=== PATIENT | female | born 1965 | race Caucasian/White ===

== ENCOUNTER 2022-11-24 21:04 | Observation (INO) | payer OTHER ==
[2022-11-24] MEDS ORDERED: ANTIVERT 25 MG PO ONE (22:33)
[2022-11-24] MEDS ORDERED: Zofran 4 MG/2 ML VIAL IV ONE (22:33)
[2022-11-24 22:42] LABS: Absolute Neutrophil Ct (ANC) 6.42 x10^3/uL (1.4-6.9); BASOPHIL % 0.3 % (0.0-0.4); Basophil (Absolute #) 0.03 x10^3/uL (0-0.4); Eosinophil % 1.3 % (0.00-5.0); Eosinophil (Absolute #) 0.11 x10^3/uL (0-0.5); Hemoglobin 15.9 g/dL (12.0-16.0); IMMATURE GRAN # 0.03 x10^3u/L (0.00-0.03); IMMATURE GRAN % 0.3 % (0.00-0.4); Lymphocytes % 17.4 % (24.0-44.0); Mean Cell Volume 91.1 fL (78-100); Mean Corpuscular Hemoglobin 30.2 pg (26-32); Mean Corpuscular Hgb Concent. 33.1 g/dL (32-36); Mean Platelet Volume 12.5 fL (7.5-11.0); Monocyte (Absolute #) 0.54 x10^3/uL (0.0-1.3); Monocytes % 6.3 % (0.0-12.0); Neutrophil % 74.4 % (36.0-66.0); Platelet Count 220 x10^3/uL (150-450); Red Blood Count 5.27 x10^6/uL (4.1-5.4); Red Cell Distribution Width 12.4 % (11.5-14.0); White Blood Count 8.6 x10^3/uL (4.0-10.5)
[2022-11-24] MEDS ORDERED: Zofran 4 MG/2 ML VIAL ONE (22:43)
[2022-11-24] MEDS ORDERED: ANTIVERT 25 MG ONE (22:43)
--- NOTE | 2022-11-24 22:44 | ERPHSYRPT ---
- History of Present Illness Time Seen by Provider: 11/24/22 22:39 Source: patient Exam Limitations: no limitations Patient Subjective Stated Complaint: dizziness, vomiting x2 Triage Nursing Assessment: pt ambulatory to bed by self, alert and oriented x3, pt resting in bed with eyes closed, pt c/o dizziness, pt states she has vomited x2 d/t the dizziness with the first time being forced, pt afebrile, pt states the dizziness is worse when she is ambulating, pt hypertensive, pt states no pmhx Physician History: Patient is a 57-year-old female presents to our ED with complaint of dizziness that started this morning. Patient went to work this morning. Dizziness progressed. Dizziness associated with nausea and vomiting. Patient states dizziness is constant however worse when she moves her head. No trauma. No f ever. No headache. No neck pain. No photophobia. Patient voices no other complaints at this time. Patient denies a history of the same. Patient has no significant cardiovascular risk factors other than age. Significant other at bedside. They voiced no other complaints or concerns at this time. \ Patient disclaimer Timing/Duration: today Severity: moderate Modifying Factors: Improves With: nothing Associated Symptoms: nausea, vomiting Allergies/Adverse Reactions: No Known Drug Allergies Allergy (Verified 11/25/22 01:10) Home Medications: No Reportable Medications [No Reported Medications] 11/24/22 [History] Hx Tetanus, Diphtheria Vaccination/Date Given: No Hx Influenza Vaccination/Date Given: No Hx Pneumococcal Vaccination/Date Given: No Immunizations Up to Date: Yes Travel Risk - International Travel Have you traveled outside of the country in past 3 weeks: No - Coronavirus Screening Are you exhibiting any of the following symptoms?: No Close contact with a COVID-19 positive Pt in past 14-21 Days: No - Vaccine Status Have you recieved a Covid-19 vaccination: 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: [employer] - Review of Systems Constitutional: No Symptoms, No Fever, No Chills Eyes: No Symptoms Ears, Nose, & Throat: No Symptoms Respiratory: No Symptoms, No Cough, No Dyspnea Cardiac: No Symptoms, No Chest Pain, No Edema, No Syncope Abdominal/Gastrointestinal: No Symptoms, No Abdominal Pain, No Nausea, No Vomiting, No Diarrhea Genitourinary Symptoms: No Symptoms, No Dysuria Musculoskeletal: No Symptoms, No Back Pain, No Neck Pain Skin: No Symptoms, No Rash Neurological: No Symptoms, No Dizziness, No Focal Weakness, No Sensory Changes Psychological: No Symptoms Endocrine: No Symptoms Hematologic/Lymphatic: No Symptoms Immunological/Allergic: No Symptoms All Other Systems: Reviewed and Negative - Past Medical History Pertinent Past Medical History: No Neurological History: No Pertinent History ENT History: No Pertinent History Cardiac History: No Pertinent History Respiratory History: No Pertinent History Endocrine Medical History: No Pertinent History Musculoskeletal History: No Pertinent History GI Medical History: No Pertinent History History: No Pertinent History Psycho-Social History: No Pertinent History Female Reproductive Disorders: No Pertinent History - Past Surgical History Past Surgical History: Yes Neuro Surgical History: No Pertinent History Cardiac: No Pertinent History Respiratory: No Pertinent History Gastrointestinal: No Pertinent History Genitourinary: No Pertinent History Musculoskeletal: No Pertinent History Female Surgical History: Section - Social History Smoking Status: Never smoker Exposure to second hand smoke: No Drug Use: none Patient Lives Alone: No - Nursing Vital Signs Nursing Vital Signs: Initial Vital Signs Temperature 97.4 F 11/24/22 21:15 Pulse Rate 86 11/24/22 21:15 Respiratory Rate 18 11/24/22 21:15 Blood Pressure 168/111 11/24/22 21:15 O2 Sat by Pulse Oximetry 99 11/24/22 21:15 Pain Scale Pain Intensity 0 - Physical Exam General Appearance: no apparent distress, alert Eye Exam: PERRL/EOMI, eyes nml inspection Ears, Nose, Throat Exam: normal ENT inspection, TMs normal, pharynx normal, moist mucous membranes Neck Exam: normal inspection, non-tender, supple, full range of motion Respiratory Exam: normal breath sounds, lungs clear, airway intact, No respiratory distress Cardiovascular Exam: regular rate/rhythm, normal heart sounds, normal peripheral pulses Gastrointestinal/Abdomen Exam: soft, normal bowel sounds, No tenderness, No mass Back Exam: normal inspection, normal range of motion, No CVA tenderness, No vertebral tenderness Extremity Exam: normal inspection, normal range of motion, pelvis stable Neurologic Exam: alert, oriented x 3, cooperative, normal mood/affect, sensation nml, other (We were able to reproduce dizziness with head motion. Neuro gynecologic exam otherwise negative), No motor deficits Skin Exam: normal color, warm, dry, No rash Lymphatic Exam: No adenopathy SpO2 Interpretation: normal SpO2: 98 O2 Delivery: Room Air - Course Nursing assessment & vital signs reviewed: Yes EKG Interpreted by Me: RATE (73), Sinus Rhythm, NORMAL AXIS, NORMAL INTERVALS - CT Exams Head CT Interpretation: Tele-radiologist Report (CT head negative for acute intracranial pathology.) Ordered Tests: Active Orders 24 hr Category Date Time Status Internet Technology Manager STAT Care 11/24/22 22:30 Active EKG-ER Only STAT Care 11/24/22 22:29 Active IV Insertion STAT Care 11/24/22 22:29 Active Pulse Oximetry (ED) STAT Care 11/24/22 22:29 Active HEAD WITHOUT CONTRAST [CT] Stat Exams 11/24/22 22:34 Taken CBC W DIFF Stat Lab 11/24/22 22:30 Completed CMP Stat Lab 11/24/22 22:30 Completed TROPONIN Q4H Lab 11/24/22 22:30 Completed TROPONIN Q4H Lab 11/25/22 02:30 Ordered TROPONIN Q4H Lab 11/25/22 06:30 Ordered UA W/RFX UR CULTURE Stat Lab 11/24/22 22:35 Completed Transfer Order Routine Transfer 11/25/22 Ordered Medication Summary Generic Name Dose Route Start Last Admin Trade Name Freq PRN Reason Stop Dose Admin Sodium Chloride 1,000 mls @ 100 mls/hr 11/24/22 22:30 11/24/22 22:52 Sodium Chloride 0.9% 1000 Ml IV 12/24/22 22:29 100 mls/hr .Q10H EDILIA Administration Discontinued Medications Generic Name Dose Route Start Last Admin Trade Name Freq PRN Reason Stop Dose Admin Meclizine HCl 25 mg 11/24/22 22:33 11/24/22 22:51 Meclizine Hcl 25 Mg Tablet PO 11/24/22 22:34 25 mg STAT ONE Administration Meclizine HCl Confirm 11/24/22 22:43 Meclizine Hcl 25 Mg Tablet Administered 11/24/22 22:44 Dose 25 mg .ROUTE .STK-MED ONE Ondansetron HCl 4 mg 11/24/22 22:33 11/24/22 22:51 Ondansetron Hcl 4 Mg/2 Ml Vial IV 11/24/22 22:34 4 mg STAT ONE Administration Ondansetron HCl Confirm 11/24/22 22:43 Ondansetron Hcl 4 Mg/2 Ml Vial Administered 11/24/22 22:44 Dose 4 mg .ROUTE .STK-MED ONE Lab/Rad Data: Laboratory Result Diagrams 11/24/22 22:30 11/24/22 22:30 Laboratory Results 11/24/22 11/24/22 11/24/22 Range/Units 23:50 22:35 22:30 WBC (4.0-10.5) x10^3/uL RBC (4.1-5.4) x10^6/uL Hgb (12.0-16.0) g/dL Hct (35-47) % MCV (78-100) fL MCH (26-32) pg MCHC (32-36) g/dL RDW (11.5-14.0) % Plt Count (150-450) x10^3/uL MPV (7.5-11.0) fL Gran % (36.0-66.0) % Immature Gran % (Auto) (0.00-0.4) % Nucleat RBC Rel Count (0.00-0.1) % Eos # (Auto) (0-0.5) x10^3/uL Immature Gran # (Auto) (0.00-0.03) x10^3u/L Absolute Lymphs (auto) (1.0-4.6) x10^3/uL Absolute Monos (auto) (0.0-1.3) x10^3/uL Absolute Nucleated RBC (0.00-0.01) x10^3u/L Lymphocytes % (24.0-44.0) % Monocytes % (0.0-12.0) % Eosinophils % (0.00-5.0) % Basophils % (0.0-0.4) % Absolute Granulocytes (1.4-6.9) x10^3/uL Basophils # (0-0.4) x10^3/uL Sodium (137-145) mmol/L Potassium (3.5-5.1) mmol/L Chloride (98-107) mmol/L Carbon Dioxide (22-30) mmol/L Anion Gap (5-15) MEQ/L BUN (7-17) mg/dL Creatinine (0.52-1.04) mg/dL Estimated GFR ML/MIN Glucose (74-106) mg/dL Calcium (8.4-10.2) mg/dL Total Bilirubin (0.2-1.3) mg/dL AST (14-36) U/L ALT (0-35) U/L Alkaline Phosphatase (38-126) U/L Troponin I < 0.012 (0.000-0.034) ng/mL Serum Total Protein (6.3-8.2) g/dL Albumin (3.5-5.0) g/dL Urine Color Yellow (Yellow) Urine Appearance Turbid A (Clear) Urine pH >=9.0 A (4.6-8.0) Ur Specific [place] 1.020 (1.005-1.030) Urine Protein Trace A (Negative) Urine Glucose (UA) Negative (Negative) mg/dL Urine Ketones Negative (Negative) Urine Blood Negative (Negative) Urine Nitrite Negative (Negative) Urine Bilirubin Negative (Negative) Urine Urobilinogen 0.2 (0.2) mg/dL Ur Leukocyte Esterase Trace A (Negative) U Hyaline Cast (Auto) NONE SEEN (0-2) /LPF Urine Microscopic RBC 0-2 (0-5) /HPF Urine Microscopic WBC 0-2 (0-5) /HPF Ur Epithelial Cells Rare (None Seen) /HPF Urine Bacteria None Seen (None Seen) /HPF Urine Culture Reflexed NO (NO) Influenza Type A Ag NEGATIVE (NEGATIVE) Influenza Type B Ag NEGATIVE (NEGATIVE) RSV (PCR) NEGATIVE (Negative) SARS-CoV-2 (PCR) NEGATIVE (NEGATIVE) 11/24/22 11/24/22 Range/Units 22:30 22:30 WBC 8.6 (4.0-10.5) x10^3/uL RBC 5.27 (4.1-5.4) x10^6/uL Hgb 15.9 (12.0-16.0) g/dL Hct 48.0 H (35-47) % MCV 91.1 (78-100) fL MCH 30.2 (26-32) pg MCHC 33.1 (32-36) g/dL RDW 12.4 (11.5-14.0) % Plt Count 220 (150-450) x10^3/uL MPV 12.5 H (7.5-11.0) fL Gran % 74.4 H (36.0-66.0) % Immature Gran % (Auto) 0.3 (0.00-0.4) % Nucleat RBC Rel Count 0.0 (0.00-0.1) % Eos # (Auto) 0.11 (0-0.5) x10^3/uL Immature Gran # (Auto) 0.03 (0.00-0.03) x10^3u/L Absolute Lymphs (auto) 1.50 (1.0-4.6) x10^3/uL Absolute Monos (auto) 0.54 (0.0-1.3) x10^3/uL Absolute Nucleated RBC 0.00 (0.00-0.01) x10^3u/L Lymphocytes % 17.4 L (24.0-44.0) % Monocytes % 6.3 (0.0-12.0) % Eosinophils % 1.3 (0.00-5.0) % Basophils % 0.3 (0.0-0.4) % Absolute Granulocytes 6.42 (1.4-6.9) x10^3/uL Basophils # 0.03 (0-0.4) x10^3/uL Sodium 138 (137-145) mmol/L Potassium 3.3 L (3.5-5.1) mmol/L Chloride 104 (98-107) mmol/L Carbon Dioxide 28 (22-30) mmol/L Anion Gap 9.5 (5-15) MEQ/L BUN 16 (7-17) mg/dL Creatinine 0.73 (0.52-1.04) mg/dL Estimated GFR > 60.0 ML/MIN Glucose 117 H (74-106) mg/dL Calcium 9.4 (8.4-10.2) mg/dL Total Bilirubin 2.40 H (0.2-1.3) mg/dL AST 28 (14-36) U/L ALT 28 (0-35) U/L Alkaline Phosphatase 94 (38-126) U/L Troponin I (0.000-0.034) ng/mL Serum Total Protein 8.0 (6.3-8.2) g/dL Albumin 4.8 (3.5-5.0) g/dL Urine Color (Yellow) Urine Appearance (Clear) Urine pH (4.6-8.0) Ur Specific [place] (1.005-1.030) Urine Protein (Negative) Urine Glucose (UA) (Negative) mg/dL Urine Ketones (Negative) Urine Blood (Negative) Urine Nitrite (Negative) Urine Bilirubin (Negative) Urine Urobilinogen (0.2) mg/dL Ur Leukocyte Esterase (Negative) U Hyaline Cast (Auto) (0-2) /LPF Urine Microscopic RBC (0-5) /HPF Urine Microscopic WBC (0-5) /HPF Ur Epithelial Cells (None Seen) /HPF Urine Bacteria (None Seen) /HPF Urine Culture Reflexed (NO) Influenza Type A Ag (NEGATIVE) Influenza Type B Ag (NEGATIVE) RSV (PCR) (Negative) SARS-CoV-2 (PCR) (NEGATIVE) - Progress Progress: improved Progress Note: Patient is a 57-year-old female presents to our ED for evaluation of dizziness. This started early this morning. Dizziness progressed throughout the day. Physical exam shows dizziness worse with movement of head. Dizziness improved but not completely resolved at rest. Patient's complaint is acute in nature. Complexity of complaint is moderate. No significant comorbidities to complicate patient's presentation. Work-up reveals EKG which showed normal sinus rhythm. CBC see MP troponin COVID urinalysis and CT head ordered. Work-up essentially unremarkable. CT head negative. Patient received Zofran and meclizine for dizziness. Patient vomited twice. So patient received IV fluids. We consulted telemetry neuro who advised admission for advanced imaging and work-up. Case discussed with Dr. Trujillo our service For the day who accepts admission to observation. Plan of care discussed with patient. She agrees to admission at [facility] for further evaluation and treatment. Level of EM service provided was high. Complexity of problem stress is high. Complexity of data reviewed and analyzed is high. 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 Time spent in admission is approximately 10 to 15 minutes. Diagnosis is dizziness rule out stroke. Portions of this note were created with voice recognition technology. There may be grammatical, spelling, punctuation or sound alike errors 11/25/22 01:[address] Delta Will see patient in: hospital (observation) Counseled pt/family regarding: lab results, diagnosis Medical Desision Making - Diagnostic Testing Diagnostic Testing: Diagnostic tests were ordered,analyzed, and reviewed by me and used in my medical decision making for this patient. Radiologic studies (if ordered) were read by me initially then discussed with the radiologist . - Departure Departure Disposition: Home Clinical Impression: Dizziness, Total bilirubin, elevated Condition: Stable Critical Care Time: No Referrals: DOCTOR,NO FAMILY [Primary Care Provider] - Follow up/PCP as directed
[2022-11-24 22:52] LABS: Appearance Turbid (Clear); Bacteria None Seen /HPF (None Seen); Bilirubin Negative (Negative); Blood Negative (Negative); Epithelial Cells Rare /HPF (None Seen); Glucose, Urine Negative (Negative); Hyaline Casts NONE SEEN /LPF (0-2); Ketones Negative (Negative); Leukocyte Esterase Trace (Negative); Nitrite Negative (Negative); Ph >=9.0 (4.6-8.0); Protein,Urine Dip Trace (Negative); RBC 0-2 /HPF (0-5); Urobilinogen 0.2 mg/dL (0.2); WBC 0-2 /HPF (0-5)
[2022-11-24] MEDS: Sodium Chloride 0.9% 1000 ML 1,000 ML IV SCH (22:52)
[2022-11-24 22:53] LABS: ALBUMIN 4.8 g/dL (3.5-5.0); ALKALINE PHOSPHATASE 94 U/L (38-126); ANION GAP 9.5 MEQ/L (5-15); BLOOD UREA NITROGEN 16 mg/dL (7-17); CHLORIDE 104 mmol/L (98-107); Calcium 9.4 mg/dL (8.4-10.2); Carbon Dioxide 28 mmol/L (22-30); Creatinine 1 0.73 mg/dL (0.52-1.04); EST GLOMERULAR FILTRATION RATE > 60.0 ML/MIN; Glucose 117 mg/dL (74-106); Potassium 3.3 mmol/L (3.5-5.1); SGOT/AST 28 U/L (14-36); SGPT/ALT 28 U/L (0-35); SODIUM 138 mmol/L (137-145)
[2022-11-24 22:56] LABS: ADD URINE CULTURE? NO (NO)
[2022-11-25 00:25] LABS: INFLUENZA A NEGATIVE (NEGATIVE); INFLUENZA B NEGATIVE (NEGATIVE); RESPIRATORY SYNCTIAL VIRUS NEGATIVE (Negative); SARS-CoV-2 Xpert Express NEGATIVE (NEGATIVE)
[2022-11-25] MEDS ORDERED: Senokot-S Tablet PO PRN (01:07)
[2022-11-25] MEDS ORDERED: MILK OF MAGNESIA 30 ML PO PRN (01:07)
[2022-11-25] MEDS ORDERED: MAALOX ES 30 ML UNIT DOSE PO PRN (01:07)
[2022-11-25] MEDS: Zofran 4 MG/2 ML VIAL IV PRN ×4 (02:56→16:55)
[2022-11-25 03:16] LABS: Risk Ratio 1.8
[2022-11-25] MEDS: Sodium Chloride 0.9% 1000 ML 1,000 ML IV SCH ×2 (08:26→19:12)
--- NOTE | 2022-11-25 08:45 | XRAY ---
Indication: Dizziness. Multiple contiguous axial images obtained through the head without contrast. Comparison: None Normal appearing brain parenchyma, ventricles, and bony calvarium. Visualized paranasal sinuses and mastoid air cells are clear. Impression: Normal CT head without contrast exam. Comment: Preliminary interpretation made by [facility]. No critical discrepancy.
--- NOTE | 2022-11-25 14:12 | XRAY ---
Indication: Severe dizziness. Normal CT head. Multiple slab 3-D [id number] MRA ig[place]ugig of [place] performed. Comparison: None Distal internal carotid arteries are bilaterally symmetric without critical stenosis or obstruction. Normal carotid terminus with normal branching A1 and M1 segments bilaterally. Incidental anatomic variant for origin right posterior cerebral artery. More distal visualized anterior cerebral and middle cerebral arteries are normal in MRA appearance. Posterior circulation demonstrates normal MRA appearance to the basilar, left/right posterior cerebral, and left/right superior cerebellar arteries. Impression: Normal MRA ig[place] of [place].
--- NOTE | 2022-11-25 14:40 | XRAY ---
Indication: Severe dizziness. Normal CT head. Sagittal, coronal, and axial MRI brain performed using pre-and post T1, T2, FLAIR, diffusion, and ADC sequences. 10 cc Dotarem contrast used. Comparison: None Ventriculosulcal pattern appears symmetric. No acute intracranial hemorrhage, abnormal extra-axial fluid collection, or mass effect. Diffusion images are negative for restricted signal. Following gadolinium, no abnormal enhancing intra or extra-axial mass. Fourth ventricle is midline without hydrocephalus. 7/8 cranial nerve complex bilaterally symmetric. Normal flow void signal within the major intracerebral circulation. Normal appearing craniocervical junction and sella turcica. Paranasal sinuses are clear. Impression: Normal MRI brain with contrast exam.
--- NOTE | 2022-11-25 14:44 | XRAY ---
Indication: Severe dizziness. Normal CT head. Conventional contrast enhanced MRA neck performed. 10 cc Dotarem contrast used. Comparison: None Common carotid, carotid bulb, internal carotid, and external carotid arteries are normal in MRA appearance bilaterally. Visualized vertebral arteries are also normal in MRA appearance with the left larger in caliber. Impression: Normal MRA neck with contrast exam.
[2022-11-25] MEDS: TYLENOL 325 MG PO PRN ×2 (16:17→21:37)
[2022-11-25] MEDS ORDERED: ROCEPHIN 1 Gm-D5w 50 ml Bag** 1 G/50 ML IVPB IV ONE (19:05)
--- NOTE | 2022-11-25 19:05 | PCM.HP ---
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 She developed dizziness and a headache that progressed as the day went on and she presented to the ER. Evaluation Medications & Allergies Home Medications: Home Medication List Cephalexin Mh 500 mg [Keflex 500 mg] 500 mg PO TID 5 Days #15 cap 11/26/22 [Rx] Allergies/Adverse Reactions: Allergies Allergy/AdvReac Type Severity Reaction Status Date / Time No Known Drug Allergies Allergy Verified 11/25/22 01:10 - Past Medical History Past Medical History: No Neurological History: No Pertinent History ENT History: No Pertinent History Cardiac History: No Pertinent History Respiratory History: No Pertinent History Endocrine Medical History: No Pertinent History Musculoskelatal History: No Pertinent History GI Medical History: No Pertinent History History: No Pertinent History Pyscho-Social History: No Pertinent History Reproductive Disorders: No Pertinent History - Past Surgical History Past Surgical History: Yes Neuro Surgical History: No Pertinent History Cardiac History: No Pertinent History Respiratory Surgery: No Pertinent History GI Surgical History: No Pertinent History Genitourinary Surgical Hx: No Pertinent History Musculskeletal Surgical Hx: No Pertinent History Female Surgical History: Section - Social History Smoking Status: Never smoker Exposure to second hand smoke: No Alcohol: Rarely Drug Use: none - Physical Exam Vital Signs: Vital Signs - 24 hr Temp Pulse Resp BP Pulse Ox 11/25/22 16:00 99.7 F 76 17 148/93 93 L 11/25/22 11:49 99.0 F 74 18 149/92 94 L 11/25/22 06:49 97.8 F 79 17 140/84 95 11/25/22 04:00 98.4 F 70 16 136/86 93 L 11/25/22 01:33 98 11/25/22 01:13 97.0 F 72 18 159/94 97 11/25/22 00:26 67 16 133/85 95 11/24/22 23:00 75 16 153/111 97 11/24/22 22:36 98 11/24/22 22:06 78 18 154/101 96 11/24/22 21:15 97.4 F 86 18 168/111 99 Results - Labs Lab/Micro Results: Lab Results-Last 24 Hours 11/24/22 11/24/2223 Range/Units 22:30 22:30 22:30 WBC 8.6 (4.0-10.5) x10^3/uL RBC 5.27 (4.1-5.4) x10^6/uL Hgb 15.9 (12.0-16.0) g/dL Hct 48.0 H (35-47) % MCV 91.1 (78-100) fL MCH 30.2 (26-32) pg MCHC 33.1 (32-36) g/dL RDW 12.4 (11.5-14.0) % Plt Count 220 (150-450) x10^3/uL MPV 12.5 H (7.5-11.0) fL Gran % 74.4 H (36.0-66.0) % Immature Gran % (Auto) 0.3 (0.00-0.4) % Nucleat RBC Rel Count 0.0 (0.00-0.1) % Eos # (Auto) 0.11 (0-0.5) x10^3/uL Immature Gran # (Auto) 0.03 (0.00-0.03) x10^3u/L Absolute Lymphs (auto) 1.50 (1.0-4.6) x10^3/uL Absolute Monos (auto) 0.54 (0.0-1.3) x10^3/uL Absolute Nucleated RBC 0.00 (0.00-0.01) x10^3u/L Lymphocytes % 17.4 L (24.0-44.0) % Monocytes % 6.3 (0.0-12.0) % Eosinophils % 1.3 (0.00-5.0) % Basophils % 0.3 (0.0-0.4) % Absolute Granulocytes 6.42 (1.4-6.9) x10^3/uL Basophils # 0.03 (0-0.4) x10^3/uL Sodium 138 (137-145) mmol/L Potassium 3.3 L (3.5-5.1) mmol/L Chloride 104 (98-107) mmol/L Carbon Dioxide 28 (22-30) mmol/L Anion Gap 9.5 (5-15) MEQ/L BUN 16 (7-17) mg/dL Creatinine 0.73 (0.52-1.04) mg/dL Estimated GFR > 60.0 ML/MIN Glucose 117 H (74-106) mg/dL Calcium 9.4 (8.4-10.2) mg/dL Total Bilirubin 2.40 H (0.2-1.3) mg/dL AST 28 (14-36) U/L ALT 28 (0-35) U/L Alkaline Phosphatase 94 (38-126) U/L Troponin I < 0.012 (0.000-0.034) ng/mL Serum Total Protein 8.0 (6.3-8.2) g/dL Albumin 4.8 (3.5-5.0) g/dL Triglycerides (30-150) mg/dL Cholesterol (50-200) mg/dL LDL Cholesterol (30-100) mg/dL HDL Cholesterol (40-60) mg/dL Heart Disease Risk Ratio Urine Color (Yellow) Urine Appearance (Clear) Urine pH (4.6-8.0) Ur Specific Braddock (1.005-1.030) Urine Protein (Negative) Urine Glucose (UA) (Negative) mg/dL Urine Ketones (Negative) Urine Blood (Negative) Urine Nitrite (Negative) Urine Bilirubin (Negative) Urine Urobilinogen (0.2) mg/dL Ur Leukocyte Esterase (Negative) U Hyaline Cast (Auto) (0-2) /LPF Urine Microscopic RBC (0-5) /HPF Urine Microscopic WBC (0-5) /HPF Ur Epithelial Cells (None Seen) /HPF Urine Bacteria (None Seen) /HPF Urine Culture Reflexed (NO) Influenza Type A Ag (NEGATIVE) Influenza Type B Ag (NEGATIVE) RSV (PCR) (Negative) SARS-CoV-2 (PCR) (NEGATIVE) 11/24/22 11/24/22 11/25/22 Range/Units 22:35 23:50 02:45 WBC (4.0-10.5) x10^3/uL RBC (4.1-5.4) x10^6/uL Hgb (12.0-16.0) g/dL Hct (35-47) % MCV (78-100) fL MCH (26-32) pg MCHC (32-36) g/dL RDW (11.5-14.0) % Plt Count (150-450) x10^3/uL MPV (7.5-11.0) fL Gran % (36.0-66.0) % Immature Gran % (Auto) (0.00-0.4) % Nucleat RBC Rel Count (0.00-0.1) % Eos # (Auto) (0-0.5) x10^3/uL Immature Gran # (Auto) (0.00-0.03) x10^3u/L Absolute Lymphs (auto) (1.0-4.6) x10^3/uL Absolute Monos (auto) (0.0-1.3) x10^3/uL Absolute Nucleated RBC (0.00-0.01) x10^3u/L Lymphocytes % (24.0-44.0) % Monocytes % (0.0-12.0) % Eosinophils % (0.00-5.0) % Basophils % (0.0-0.4) % Absolute Granulocytes (1.4-6.9) x10^3/uL Basophils # (0-0.4) x10^3/uL Sodium (137-145) mmol/L Potassium (3.5-5.1) mmol/L Chloride (98-107) mmol/L Carbon Dioxide (22-30) mmol/L Anion Gap (5-15) MEQ/L BUN (7-17) mg/dL Creatinine (0.52-1.04) mg/dL Estimated GFR ML/MIN Glucose (74-106) mg/dL Calcium (8.4-10.2) mg/dL Total Bilirubin (0.2-1.3) mg/dL AST (14-36) U/L ALT (0-35) U/L Alkaline Phosphatase (38-126) U/L Troponin I < 0.012 (0.000-0.034) ng/mL Serum Total Protein (6.3-8.2) g/dL Albumin (3.5-5.0) g/dL Triglycerides (30-150) mg/dL Cholesterol (50-200) mg/dL LDL Cholesterol (30-100) mg/dL HDL Cholesterol (40-60) mg/dL Heart Disease Risk Ratio Urine Color Yellow (Yellow) Urine Appearance Turbid A (Clear) Urine pH >=9.0 A (4.6-8.0) Ur Specific Braddock 1.020 (1.005-1.030) Urine Protein Trace A (Negative) Urine Glucose (UA) Negative (Negative) mg/dL Urine Ketones Negative (Negative) Urine Blood Negative (Negative) Urine Nitrite Negative (Negative) Urine Bilirubin Negative (Negative) Urine Urobilinogen 0.2 (0.2) mg/dL Ur Leukocyte Esterase Trace A (Negative) U Hyaline Cast (Auto) NONE SEEN (0-2) /LPF Urine Microscopic RBC 0-2 (0-5) /HPF Urine Microscopic WBC 0-2 (0-5) /HPF Ur Epithelial Cells Rare (None Seen) /HPF Urine Bacteria None Seen (None Seen) /HPF Urine Culture Reflexed NO (NO) Influenza Type A Ag NEGATIVE (NEGATIVE) Influenza Type B Ag NEGATIVE (NEGATIVE) RSV (PCR) NEGATIVE (Negative) SARS-CoV-2 (PCR) NEGATIVE (NEGATIVE) 11/25/22 11/25/22 Range/Units 02:45 06:20 WBC (4.0-10.5) x10^3/uL RBC (4.1-5.4) x10^6/uL Hgb (12.0-16.0) g/dL Hct (35-47) % MCV (78-100) fL MCH (26-32) pg MCHC (32-36) g/dL RDW (11.5-14.0) % Plt Count (150-450) x10^3/uL MPV (7.5-11.0) fL Gran % (36.0-66.0) % Immature Gran % (Auto) (0.00-0.4) % Nucleat RBC Rel Count (0.00-0.1) % Eos # (Auto) (0-0.5) x10^3/uL Immature Gran # (Auto) (0.00-0.03) x10^3u/L Absolute Lymphs (auto) (1.0-4.6) x10^3/uL Absolute Monos (auto) (0.0-1.3) x10^3/uL Absolute Nucleated RBC (0.00-0.01) x10^3u/L Lymphocytes % (24.0-44.0) % Monocytes % (0.0-12.0) % Eosinophils % (0.00-5.0) % Basophils % (0.0-0.4) % Absolute Granulocytes (1.4-6.9) x10^3/uL Basophils # (0-0.4) x10^3/uL Sodium (137-145) mmol/L Potassium (3.5-5.1) mmol/L Chloride (98-107) mmol/L Carbon Dioxide (22-30) mmol/L Anion Gap (5-15) MEQ/L BUN (7-17) mg/dL Creatinine (0.52-1.04) mg/dL Estimated GFR ML/MIN Glucose (74-106) mg/dL Calcium (8.4-10.2) mg/dL Total Bilirubin (0.2-1.3) mg/dL AST (14-36) U/L ALT (0-35) U/L Alkaline Phosphatase (38-126) U/L Troponin I < 0.012 (0.000-0.034) ng/mL Serum Total Protein (6.3-8.2) g/dL Albumin (3.5-5.0) g/dL Triglycerides 69 (30-150) mg/dL Cholesterol 147 (50-200) mg/dL LDL Cholesterol 54 (30-100) mg/dL HDL Cholesterol 82 H (40-60) mg/dL Heart Disease Risk Ratio 1.8 Urine Color (Yellow) Urine Appearance (Clear) Urine pH (4.6-8.0) Ur Specific Bradd[place] (1.005-1.030) Urine Protein (Negative) Urine Glucose (UA) (Negative) mg/dL Urine Ketones (Negative) Urine Blood (Negative) Urine Nitrite (Negative) Urine Bilirubin (Negative) Urine Urobilinogen (0.2) mg/dL Ur Leukocyte Esterase (Negative) U Hyaline Cast (Auto) (0-2) /LPF Urine Microscopic RBC (0-5) /HPF Urine Microscopic WBC (0-5) /HPF Ur Epithelial Cells (None Seen) /HPF Urine Bacteria (None Seen) /HPF Urine Culture Reflexed (NO) Influenza Type A Ag (NEGATIVE) Influenza Type B Ag (NEGATIVE) RSV (PCR) (Negative) SARS-CoV-2 (PCR) (NEGATIVE) - Radiology Impressions Radiology Exams & Impressions: Radiology Procedures Category Date Time Status HEAD WITHOUT CONTRAST [CT] Stat Exams 11/24/22 22:34 Completed MRA BRAIN WITHOUT CONTRAST [MRI] Stat Exams 11/25/22 01:07 Completed MRA NECK WITH CONTRAST [MRI] Stat Exams 11/25/22 01:07 Completed MRI BRAIN W & W/O CONTRAST [MRI] Stat Exams 11/25/22 01:07 Completed - Other Procedures and Tests Respiratory Therapy 11/26/22 05:00 EKG ROUTINE 11/27/22 05:00 EKG ROUTINE Assessment/Plan (1) Dizziness Status: Resolved Assessment & Plan: resolved after I1G IV Rocephimn and hydration Code(s): R42 - DIZZINESS AND GIDDINESS (2) Total bilirubin, elevated Status: Acute Code(s): R17 - UNSPECIFIED JAUNDICE (3) Cholecystitis Status: Acute Assessment & Plan: small gall stones present. Code(s): K81.9 - CHOLECYSTITIS, UNSPECIFIED (4) Nausea & vomiting Status: Resolved Code(s): R11.2 - NAUSEA WITH VOMITING, UNSPECIFIED (5) Otitis media Status: Acute Qualifiers: Chronicity: acute Laterality: bilateral Assessment & Plan: IV Rocephin given Code(s): H66.90 - OTITIS MEDIA, UNSPECIFIED, UNSPECIFIED EAR (6) Fever Status: Acute Assessment & Plan: low grade Code(s): R50.9 - FEVER, UNSPECIFIED
[2022-11-25 20:09] LABS: Absolute Neutrophil Ct (ANC) 4.43 x10^3/uL (1.4-6.9); BASOPHIL % 0.4 % (0.0-0.4); Basophil (Absolute #) 0.03 x10^3/uL (0-0.4); Eosinophil % 1.6 % (0.00-5.0); Eosinophil (Absolute #) 0.11 x10^3/uL (0-0.5); Hemoglobin 13.9 g/dL (12.0-16.0); IMMATURE GRAN # 0.02 x10^3u/L (0.00-0.03); IMMATURE GRAN % 0.3 % (0.00-0.4); Lymphocyte (Absolute #) 1.58 x10^3/uL (1.0-4.6); Lymphocytes % 23.4 % (24.0-44.0); Mean Cell Volume 91.9 fL (78-100); Mean Corpuscular Hemoglobin 30.4 pg (26-32); Mean Corpuscular Hgb Concent. 33.1 g/dL (32-36); Mean Platelet Volume 11.3 fL (7.5-11.0); Monocyte (Absolute #) 0.58 x10^3/uL (0.0-1.3); Monocytes % 8.6 % (0.0-12.0); Neutrophil % 65.7 % (36.0-66.0); Platelet Count 183 x10^3/uL (150-450); Red Blood Count 4.57 x10^6/uL (4.1-5.4); Red Cell Distribution Width 12.3 % (11.5-14.0); White Blood Count 6.8 x10^3/uL (4.0-10.5)
[2022-11-25 21:11] LABS: ALBUMIN 3.7 g/dL (3.5-5.0); ALKALINE PHOSPHATASE 65 U/L (38-126); ANION GAP 8.7 MEQ/L (5-15); BLOOD UREA NITROGEN 11 mg/dL (7-17); CHLORIDE 109 mmol/L (98-107); Calcium 8.2 mg/dL (8.4-10.2); Carbon Dioxide 25 mmol/L (22-30); Creatinine 1 0.75 mg/dL (0.52-1.04); EST GLOMERULAR FILTRATION RATE > 60.0 ML/MIN; Glucose 111 mg/dL (74-106); Potassium 3.8 mmol/L (3.5-5.1); SGOT/AST 22 U/L (14-36); SGPT/ALT 22 U/L (0-35); SODIUM 139 mmol/L (137-145); Total Protein 6.5 g/dL (6.3-8.2); Vitamin B12 464 pg/mL (239-931)
[2022-11-25] MEDS ORDERED: ANTIVERT 25 MG PO PRN (22:00)
[2022-11-26] MEDS: TYLENOL 325 MG PO PRN (02:22)
[2022-11-26] MEDS: Sodium Chloride 0.9% 1000 ML 1,000 ML IV SCH (04:59)
[2022-11-26 09:07] VITALS: O2SAT 96
[2022-11-26] MEDS ORDERED: ROCEPHIN 1 Gm-D5w 50 ml Bag** 1 G/50 ML IVPB IV SCH ×2 (10:00→22:00)
--- NOTE | 2022-11-26 10:21 | XRAY ---
Indication: Nausea and vomiting. Elevated bilirubin. Two-dimensional abdominal sonogram performed. Comparison: None Visualized liver, pancreas, and spleen are homogeneous in echogenicity. No organomegaly or ascites. Gallbladder normally distended with a few tiny gallstones. No abnormal gallbladder wall thickening or pericholecystic fluid. Common bile duct measures 3.4 mm. Visualized aorta and IVC are normal in course and caliber. Right kidney measures 10.7 cm and the left measures 9.5 cm in length and sonographically normal. Impression: A few tiny gallstones. Remaining abdominal sonogram is negative.
[2022-11-26 11:37] VITALS: BP 149/92; PULSE 65
[2022-11-26] MEDS ORDERED: Transderm Scop 1.5MG Patch TOP ONE (14:43)
== END 2022-11-26 15:10 | disposition home or self-care (01) ==
LOC: ED 21:04 → MED SURG 11-25 01:06
PROVIDERS: ADMIT Family Medicine; ATTEND Family Medicine
DX: R42 Dizziness and giddiness (principal); H83.2X1 Labyrinthine dysfunction, right ear; H66.91 Otitis media, unspecified, right ear; Z20.828 Contact with and (suspected) exposure to other viral communicable diseases
CPT/HCPCS: 0241U; 36000; 36415; 70450; 70544; 70548; 70553; 76700; 80053; 80061; 81001; 82607; 83721; 84443; 84484; 85025; 87651; 93005; 93041; 94760; 96374; 99285; 93268; J0696; J2405; A9270-GY; G0378

== ENCOUNTER 2023-01-05 10:50 | Day surgery (SDC) | payer OTHER ==
--- NOTE | 2023-01-05 08:59 | HP ---
DATE OF SURGERY: 01/05/2023 HISTORY OF PRESENT ILLNESS: The patient is a 57-year-old had some nausea, headache, some dizziness and nausea. Ultrasound showed cholelithiasis. She denies any change in bowel habits. Given the persistent nausea, it was felt she had acute exacerbation of chronic cholecystitis, symptomatic cholelithiasis. PAST MEDICAL HISTORY: Hypertension. Seasonal allergies. PAST SURGICAL HISTORY: section. Tubal ligation. MEDICATIONS: Flonase, Zyrtec. ALLERGIES: NKDA. FAMILY HISTORY: Cancer. SOCIAL HISTORY: No smoking. Occasional alcohol use. REVIEW OF SYSTEMS: Fourteen systems reviewed. No chest pain or palpitations. Other systems negative or noncontributory as above and per preadmission questionnaire. PHYSICAL EXAMINATION: BMI 23.44. Height 5' 0". GENERAL: No acute distress. HEENT: Sclerae nonicteric. Oral mucous membranes moist. NECK: No JVD. CHEST: Equal excursion, nonlabored breathing. CVS: Regular rate and rhythm. ABDOMEN: Soft. No peritoneal signs. EXTREMITIES: No significant edema. NEURO: Alert, oriented, moving extremities symmetrically. RECTAL: Deferred timed to endoscopy exam. PSYCH: Appropriate mood and affect. SKIN: Dry. IMPRESSION: Acute exacerbation chronic cholecystitis, symptomatic cholelithiasis, nausea and dehydration standpoint. I recommend cholecystectomy. She was shown the risk sheet, explained the procedure in detail including but not limited to bleeding or infection, risk of trocar injury or hernia, risk of bowel, bladder or blood vessel injury, risk of bile leak, bile duct injury, retained stone or sludge possibly requiring further procedure either open or ERCP, general risk of anesthesia, deep venous thrombosis, pulmonary embolism, pneumonia, perioperative risk of aches, pains, bloating, constipation and/or loose stools possibly even chronic in nature. She understands and agrees to the planned procedure, will proceed with laparoscopic cholecystectomy with possible open as an outpatient.
[~2023-01-05 10:50] MED LIST: Sensorcaine 0.25% 10 ML ONE
[2023-01-05] MEDS ORDERED: MEFOXIN 2 GM PREMIX** 2 GM/50 ML ML IV ONE (11:05)
[2023-01-05] MEDS ORDERED: Lactated Ringers 1,000 ML IV ONE (11:06)
[2023-01-05] MEDS ORDERED: Lactated Ringers 1,000 ML IV SCH (11:30)
[2023-01-05] MEDS ORDERED: TRANDATE 20 MG/4 ML SYRINGE IV PRN (11:30)
[2023-01-05] MEDS ORDERED: MEFOXIN 2 GM PREMIX** 2 GM/50 ML ML IV SCH (12:00)
[2023-01-05] MEDS ORDERED: TORAdol 30 mg Injection ONE (12:33)
[2023-01-05] MEDS ORDERED: Xylocaine-Mpf 2% 5 Ml Vial ONE (12:33)
[2023-01-05] MEDS ORDERED: BRIDION 200MG/2ML IV ONE ×2 (12:33→13:26)
[2023-01-05] MEDS ORDERED: Zemuron 100 MG/10 ML ONE (12:33)
[2023-01-05] MEDS ORDERED: DIPRIVAN 200 MG/20 ML IV ONE (12:33)
[2023-01-05] MEDS ORDERED: Decadron 4 MG INJ ONE (12:33)
[2023-01-05] MEDS ORDERED: Zofran 4 MG/2 ML VIAL ONE ×2 (12:33→15:17)
[2023-01-05] MEDS ORDERED: SUBLIMAZE 100 MCG/2 ML ONE ×2 (12:34→14:01)
[2023-01-05] MEDS ORDERED: OFIRMEV 100 ML IV ONE (12:38)
[2023-01-05] MEDS ORDERED: XYLOCAINE 1%/Epi 1:100000 MDV 20 ML ONE (13:21)
[2023-01-05] MEDS ORDERED: APRESOLINE 20 MG/ML INJ ONE ×2 (13:36→16:01)
[2023-01-05] MEDS ORDERED: Hydromorphone 1 mg/ml Injection ONE (14:27)
[2023-01-05 15:34] VITALS: PULSE 70
[2023-01-05] MEDS ORDERED: APRESOLINE 20 MG/ML INJ IV ONE (16:04)
[2023-01-05 16:30] VITALS: BP 134/93; O2SAT 97
--- NOTE | 2023-01-06 08:16 | OP ---
SURGERY DATE/TIME: 01/05/2023 1238 PREOPERATIVE DIAGNOSIS: Acute exacerbation of chronic cholecystitis, symptomatic cholelithiasis. POSTOPERATIVE DIAGNOSIS: Acute exacerbation of chronic cholecystitis, symptomatic cholelithiasis. PROCEDURE: Laparoscopic cholecystectomy. SURGEON: Dr. Irineo Montesinos. MERCHANDISE SUPERVISOR: Bobby Chang, Medical Student III. ANESTHESIA: General. ESTIMATED BLOOD LOSS: Minimal. INDICATIONS: As noted above. Risks and benefits explained in detail but not limited to and consent obtained. DESCRIPTION OF PROCEDURE AND FINDINGS: The patient was taken to the operating room. General anesthesia induced. Abdomen prepped and draped in usual sterile fashion. After official time out and no disagreement with planned procedure, a transverse incision made in the supraumbilical area. Fascia grasped, pulled upward. Veress needle inserted and tested with saline. Pneumoperitoneum accomplished insufflating opening pressure of 0-15. An 11 mm bladeless port and camera were inserted without difficulty followed by two - 5 mm right upper quadrant ports and 5 mm epigastric port. There is no evidence of any intraabdominal injury secondary to trocar insertion or Veress needle placement. The gallbladder is grasped and retracted over the edge of the liver laterally away from Calot triangle. The gallbladder had chronic inflammatory reaction. It was dissected posterior, lateral to anterior fashion. Gallbladder elevated upwards. The cystic duct and infundibular junction carefully well skeletonized until the critical view was obtained both anteriorly and posteriorly. Once this is accomplished, the cystic duct and cystic artery were clipped x3 and divided in the usual fashion. The gallbladder is slowly and carefully dissected free from its dense attachments to the liver bed staying directly on the gallbladder wall clipping additional oozing side branches off the cystic duct and cystic vein directly on the gallbladder wall as necessary. Just prior to releasing from final attachments to the anterior edge of the liver, one of the graspers tore a small hole in the gallbladder spilling a small amount of bile. There is no visible evidence of any large stone spillage, this is suctioned and irrigated as clear as possible. Gallbladder continued to be dissected. Just prior to releasing from the final attachments to the liver bed the liver bed re-inspected. Clips noted in place in the cystic duct and cystic artery stumps. No signs of any active bleeding or bile leakage. It was felt there is no benefit of drain placement. The gallbladder was released from final attachments and placed in the provided sac pulled up and out the 10/11 supraumbilical port site and passed off. The fascial defect was closed with puncture closure device with #1 Vicryl. Copious amount of irrigation accomplished lateral to the liver irrigating clear. Liver bed re-inspected. Clips noted to be in place cystic duct and cystic artery stumps. No signs of any active bleeding or bile leakage. It was felt there was no benefit in drain placement. Pneumoperitoneum decompressed. The wound irrigated out. Skin incision closed with 4-0 Vicryl. It should be noted that the patient's skin looked quite oozy and had antiplatelet effect. The skin was closed with 4-0 Vicryl inverted interrupted fashion. Some 1% lidocaine local was infiltrated around the area with epinephrine. She appeared to have adequate hemostasis. Pressure dressings were applied. Steri-Strips and sterile dressing applied. The patient tolerated the procedure well. Findings discussed with the family out in the waiting area.
== END 2023-01-05 16:35 | disposition home or self-care (01) ==
LOC: SDC 10:50
PROVIDERS: ATTEND Surgery
DX: K80.10 Calculus of gallbladder with chronic cholecystitis without obstruction (principal)
CPT/HCPCS: 96374; J0360; J0694; J1100; J1170; J1885; J2405; J2704; J3010